=== PATIENT | female | born 1995 | race Caucasian/White ===

== ENCOUNTER 2017-10-27 17:08 | Emergency (ER) | payer OTHER, SELFPAY ==
[2017-10-27 17:25] VITALS: BP 118/79; PULSE 77; RESP 20; TEMP 36.8; O2SAT 99; BMI 30.9
--- NOTE | 2017-10-27 17:43 | HMH.EDUTC ---
[facility] [place] Disposition Clinical Impression: Conjunctivitis Qualifiers: Conjunctivitis type: unspecified Laterality: right Qualified Code(s): H10.9 - Unspecified conjunctivitis Disposition: Home, Self-Care Condition on Discharge: Good Instructions: DI for Conjunctivitis, Conjunctivitis Additional Instructions: Warm compresses may help to soothe eye irritation Wash eye with baby shampoo and warm rag to remove matting from eye lashes and lids If you began to have any trouble with vision go straight to Dr Barillas at [facility] Use drops as prescribed Follow up with family doctor Prescriptions: Gentamicin Sulfate [Garamycin 0.3% opth alex 5mL] 1 - 2 drops EYE-RIGHT Q4H #1 drops Referrals: David Diaz MD [Primary Care Provider] - Time of Disposition: 17:51 Medical Decision Making - Medical Records Medical records reviewed: Yes: I reviewed the patient's medical records. - Jordan Inquiry Pt receiving controlled substance: No Jordan was queried for this patient: No Vital Signs: 10/27/17 17:25 Temperature 98.2 F Temperature Source Temporal Artery Scan Pulse Rate [Right] 77 Respiratory Rate 20 Blood Pressure [Right Arm] 118/79 Blood Pressure Mean [Right Arm] 92 Blood Pressure Source [Right Arm] Automatic Cuff Blood Pressure Position [Right Arm] Sitting 02 Sat by Pulse Oximetry 99 Oxygen Delivery Method Room Air [facility] [place] HPI - General Stated complaint: Possible Arial Eye Time Seen by Provider: 10/27/17 17:35 Mode of Arrival: Ambulatory Source of Information: Patient Limitations: No Limitations Description of Symptoms (Recalled from Triage Doc. by RN): POSS PINK EYE 2 DAYS HEENT Symptoms (Recalled from RN notes): Yes Resp Symptoms (Recalled from RN notes): No Skin Symptoms (Recalled from RN notes): No MS Symptoms (Recalled from RN notes): No Functional Status (Recalled from RN notes): N - History of Present Illness Provider Complaint: Patient state that she has been having redness, itching, matting and drainage in her right eye for the last two days State that when she woke up eye was matted shut and she used a warm rag to get eye open State that she noticed today that her eye looked more red and someone told her they thought she had pink eye so she came in to get checked out - Related Data Home Medications Medication Instructions Recorded Confirmed albuterol sulfate HFA 90 2 puff INHALATION Q4-6H PRN 09/14/17 mcg/actuation aerosol inhaler Previous Rx's Medication Instructions Recorded Gentamicin Sulfate [Garamycin 0.3% 1 - 2 drops EYE-RIGHT Q4H #1 drops 10/27/17 opth alex 5mL] Allergies Allergy/AdvReac Type Severity Reaction Status Date / Time penicillin G [PENICILLIN G] Allergy Mild Verified 10/27/17 17:28 red dye [RED DYE] Allergy Unknown Verified 10/27/17 17:28 - Worker's Comp Is this a Worker's Comp case?: No [facility] History I have reviewed the patient's past medical history: Yes Medical History: Reports:: Asthma Laterality Cases: Bilateral: Tonsillectomy Other Surgeries: Yes: Amputation: No Fractures: No Comment: GALLBLADDER - Social History Smoking Status: Never smoker Alcohol Intake: never Substance Use Type: denies use - Psychiatric History Expresses thoughts of harming self/others: None Suicide Plan Description: No Plan Family Hx:: Hypertension, Diabetes, Cancer, Hyperlipidemia, Asthma, Stroke, Kidney Disease, Thyroid Disorder, Heart Attack ROS Obtained: Yes All systems reviewed & no additional complaints - Eyes Eyes: Denies blurry vision, Reports eye discharge, Reports irritation, Reports other (Redness and matting of eyes) Physical Exam - General General appearance: alert, in no apparent distress - Expanded Eye Exam Comment: Right eye conjunctiva red like that seen with pink eye drainage noted, Denies vision difficulty - Respiratory Respiratory exam: Present: normal lung sounds bilaterally. Absent: respiratory distress
[2017-10-27 17:45] VITALS: BP 118/79; PULSE 77; RESP 20; TEMP 36.8
--- NOTE | 2017-10-27 17:46 | ED_ITS ---
[facility] [place] Disposition Clinical Impression: Conjunctivitis Qualifiers: Conjunctivitis type: unspecified Laterality: right Qualified Code(s): H10.9 - Unspecified conjunctivitis Disposition: Home, Self-Care Condition on Discharge: Good Instructions: DI for Conjunctivitis, Conjunctivitis Additional Instructions: Warm compresses may help to soothe eye irritation Wash eye with baby shampoo and warm rag to remove matting from eye lashes and lids If you began to have any trouble with vision go straight to Dr Barillas at [facility] Use drops as prescribed Follow up with family doctor Prescriptions: Gentamicin Sulfate [Garamycin 0.3% opth alex 5mL] 1 - 2 drops EYE-RIGHT Q4H #1 drops Referrals: David Diaz MD [Primary Care Provider] - Time of Disposition: 17:51 Medical Decision Making - Medical Records Medical records reviewed: Yes: I reviewed the patient's medical records. - Joradn Inquiry Pt receiving controlled substance: No Jordan was queried for this patient: No Vital Signs: 10/27/17 17:25 Temperature 98.2 F Temperature Source Temporal Artery Scan Pulse Rate [Right] 77 Respiratory Rate 20 Blood Pressure [Right Arm] 118/79 Blood Pressure Mean [Right Arm] 92 Blood Pressure Source [Right Arm] Automatic Cuff Blood Pressure Position [Right Arm] Sitting 02 Sat by Pulse Oximetry 99 Oxygen Delivery Method Room Air [facility] [place] HPI - General Stated complaint: Possible [place] Eye Time Seen by Provider: 10/27/17 17:35 Mode of Arrival: Ambulatory Source of Information: Patient Limitations: No Limitations Description of Symptoms (Recalled from Triage Doc. by RN): POSS PINK EYE 2 DAYS HEENT Symptoms (Recalled from RN notes): Yes Resp Symptoms (Recalled from RN notes): No Skin Symptoms (Recalled from RN notes): No MS Symptoms (Recalled from RN notes): No Functional Status (Recalled from RN notes): N - History of Present Illness Provider Complaint: Patient state that she has been having redness, itching, matting and drainage in her right eye for the last two days State that when she woke up eye was matted shut and she used a warm rag to get eye open State that she noticed today that her eye looked more red and someone told her they thought she had pink eye so she came in to get checked out - Related Data Home Medications Medication Instructions Recorded Confirmed albuterol sulfate HFA 90 2 puff INHALATION Q4-6H PRN 09/14/17 mcg/actuation aerosol inhaler Previous Rx's Medication Instructions Recorded Gentamicin Sulfate [Garamycin 0.3% 1 - 2 drops EYE-RIGHT Q4H #1 drops 10/27/17 opth alex 5mL] Allergies Allergy/AdvReac Type Severity Reaction Status Date / Time penicillin G [PENICILLIN G] Allergy Mild Verified 10/27/17 17:28 red dye [RED DYE] Allergy Unknown Verified 10/27/17 17:28 - Worker's Comp Is this a Worker's Comp case?: No [facility] History I have reviewed the patient's past medical history: Yes Medical History: Reports:: Asthma Laterality Cases: Bilateral: Tonsillectomy Other Surgeries: Yes: Amputation: No Fractures: No Comment: GALLBLADDER - Social History Smoking Status: Never smoker Alcohol Intake: never Substance Use Type: denies use - Psychiatric History Expresses thoughts of harming self/others: None Suicide Plan Description
== END 2017-10-27 18:02 | disposition home or self-care (01) ==
PROVIDERS: Emergency Provider Nurse Practitioner; Family Provider Family Medicine; PCP Family Medicine
DX: H10.31 Unspecified acute conjunctivitis, right eye (principal); J45.909 Unspecified asthma, uncomplicated; Z88.0 Allergy status to penicillin
CPT/HCPCS: 99201

== ENCOUNTER → 2018-01-13 15:11 | Outpatient (CLI) | payer OTHER, SELFPAY ==
[2018-01-13 17:42] LABS: HCG Qualitative, Serum Positive (Negative)
== END ==
PROVIDERS: Visit Provider Obstetrics & Gynecology
DX: Z32.00 Encounter for pregnancy test, result unknown (principal)
CPT/HCPCS: 36415; 84703

== ENCOUNTER → 2018-03-01 13:19 | Outpatient (CLI) | payer OTHER, SELFPAY ==
--- NOTE | 2018-03-01 13:21 | US_ITS ---
US OB <= 14 weeks fetus HISTORY: ITS.REASON: US OB-Dates COMPARISON: Previous OB ultrasound study 06/18/2016 FINDINGS: There is a single fetus noted in breech presentation. The heart rate is 165 bpm. The placenta is posterior. The crown-rump length was measured at 9.64 cm equaling 15 weeks and 4 days. There is a three-vessel cord noted.] Reveal the BPD to be 3.34 cm equaling 16 weeks and 3 days, occipital frontal diameter measures 3.97 cm equaling 15 weeks and 4 days. The head circumference is 1.53 cm equaling 15 weeks and 5 days. There is a normal amount of amniotic fluid. No gross abnormalities identified. IMPRESSION: Live intrauterine gestation at 16 weeks and 0 days, suggest a follow-up study in 4-5 weeks for better anatomical evaluation.
== END ==
PROVIDERS: Family Provider Family Medicine; PCP Family Medicine; Visit Provider Nurse Practitioner Obstetrics & Gynecology
DX: O26.841 Uterine size-date discrepancy, first trimester (principal)
CPT/HCPCS: 76801; 76817

== ENCOUNTER → 2018-03-22 14:41 | Outpatient (CLI) | payer OTHER, SELFPAY ==
[2018-03-22 15:03] LABS: Basophils % 0.3 % (0.1-2.0); Eosinophils # 0.2 K/mm3 (0.0-0.4); Eosinophils % 2.8 % (0.1-12.0); Hematocrit 34.9 % (37.0-47.0); Hemoglobin 12.1 g/dL (12.2-16.2); Lymphocytes # 1.3 K/mm3 (0.7-4.5); Lymphocytes % 20.3 K/mm3 (10-50); Mean Corpuscular HGB Conc 34.8 g/dL (31.8-35.4); Mean Corpuscular Hemoglobin 30.1 pg (27.0-31.2); Mean Corpuscular Volume 86.7 fl (81-99); Mean Platelet Volume 7.6 fl (7.4-10.4); Monocytes # 0.2 K/mm3 (0.1-1.0); Monocytes % 2.9 % (1.7-9.3); Neutrophils # 4.8 K/mm3 (1.8-7.8); Neutrophils % 73.6 % (37.0-80.0); Platelet Count 176 K/mm3 (142-424); Red Blood Count 4.03 M/mm3 (4.20-5.40); Red Cell Distribution Width 13.6 % (11.5-17.5); White Blood Count 6.5 K/mm3 (4.8-10.8)
[2018-03-25 15:19] LABS: HIV Screen 4th Generation wRfx Non Reactive (Non Reactive); Hepatitis B Surface Antigen Negative (Negative); Hepatitis C Antibody <0.1 s/co ratio (0.0-0.9); Rapid Plasma Reagin Ab Titer Non Reactive (NonRea<1:1); Rubella Antibodies, IgG <0.90 index (Immune >0.99)
== END ==
PROVIDERS: Family Provider Family Medicine; PCP Family Medicine; Visit Provider Nurse Practitioner Obstetrics & Gynecology
DX: Z34.90 Encounter for supervision of normal pregnancy, unspecified, unspecified trimester (principal)
CPT/HCPCS: 36415; 85025; 86592; 86703; 86762; 86850; 87340; 87380; G0432

== ENCOUNTER → 2018-03-30 13:31 | Outpatient (CLI) | payer OTHER, SELFPAY ==
--- NOTE | 2018-03-30 13:32 | US_ITS ---
US OB /maternal detail: INDICATION: ITS.REASON: US OB Complete ORDERING PHYSICIAN: Henry Choudhary MD PATIENT AGE: 22 years TECHNIQUE: ultrasound transabdominal scanning. COMPARISON: No previous relevant studies. FINDINGS: Single viable intrauterine gestation. Breech position. Placenta: Posterior placenta grade 1. There is average amount fluid. The cervix appears satisfactory. Closed and measuring 4 cm in length. Complete survey performed and was unremarkable on the submitted images as in PACS. No discrete anomalies identified on survey imaging by technologist. Active fetus. Three-vessel cord with satisfactory umbilical cord insertion. 4- chamber heart noted. Survey of brain & ventricles unremarkable. Face and neck survey unremarkable. Diaphragm and chest views unremarkable. Abdomen: Both kidneys noted and unremarkable. Stomach noted and satisfactory. Spine: Survey of the spine satisfactory with no anomalies identified nor imaged. Both arms and legs noted. Amniotic Fluid: Adequate. Maternal adnexa: No significant findings. Measurements: Average ultrasound age 20 weeks 3 days. Gestational Age 21 weeks 0 day. Estimated due date by ultrasound age 1208/14/2018. Estimated weight 368 grams. BPD = 20 weeks 1 day OFD = 20 weeks 6 days HC = 19 weeks 6 days AC = 21 weeks 0 days FL = 20 weeks 4 days Growth Percentile= 27 percentile Heart Rate = 165 bpm Cerebellum = 20 weeks 5 days Humerus = 21 weeks 0 days HC/AC is 1.08. CI is 76%. FL/BPD is 72%. FL/AC is 21%. IMPRESSION: There is a single live fetus in breech presentation. Average ultrasound age is 20 weeks 3 days. Fetus is active with no obvious anomalies. Posterior placenta. Please see above for detail
== END ==
PROVIDERS: Family Provider Family Medicine; PCP Family Medicine; Visit Provider Nurse Practitioner Obstetrics & Gynecology
DX: Z36.0 Encounter for antenatal screening for chromosomal anomalies (principal)
CPT/HCPCS: 76811

== ENCOUNTER → 2018-07-13 08:10 | Outpatient (CLI) | payer OTHER, SELFPAY ==
--- NOTE | 2018-07-13 08:13 | US_ITS ---
US OB biophysical profile, US OB follow up, US SD Ratio umbilcal artery: Indication: Large for gestational age ITS.REASON: US OB BPP Growth ORDERING PHYSICIAN: Henry Choudhary MD PATIENT AGE: 23 years FINDINGS: The following parameters are obtained: Average ultrasound age is 36w2d. Estimated due date by ultrasound is 08/08/2018. Estimated weight is 2940. This is 83 percentile BPD: 35w6d OFD: 35w6d HC: 35w3d AC: 37w0d FL: 36w3d heart rate: 142 bpm. HC/AC: 0.96 (0.93-1.11) Cephalic index: 80% (70-86%) FL/BPD: 80% (71-87%) FL/AC: 22% (20-24%) Amniotic fluid index: 19 cm Qualitative AFV: 2 breathing movements: 2 Gross body movements: 2 Tone: 2 Biophysical profile score: 8/8 Doppler evaluation of the umbilical artery: SD ratio: 2.9 Resistive index: 0.66 No obvious anomalies evident. Placenta: Post Cervix: Appears closed and measures 3 cm IMPRESSION: There is a single live fetus which is in cephalic presentation with an average ultrasound age of 36 weeks and 2 days. Estimated weight is 2940 g which is 83 percentile. Placenta is posterior and grade one. REGI upper normal at 19 cm. Biophysical profile 8 of 8 Unremarkable umbilical artery Doppler evaluation
== END ==
PROVIDERS: PCP Family Medicine; Visit Provider Nurse Practitioner Obstetrics & Gynecology
DX: O36.63X0 Maternal care for excessive fetal growth, third trimester, not applicable or unspecified (principal)
CPT/HCPCS: 76816; 76819; 76820

== ENCOUNTER → 2018-07-19 17:50 | Outpatient (CLI) | payer OTHER, SELFPAY | PROVIDERS: Visit Provider Nurse Practitioner Obstetrics & Gynecology | DX: Z34.90 Encounter for supervision of normal pregnancy, unspecified, unspecified trimester (principal) | CPT/HCPCS: 86403 ==

== ENCOUNTER 2018-08-17 05:08 | Inpatient (IN) ==
[2018-08-17 06:04] LABS: Basophils % 0.2 % (0.1-2.0); Eosinophils # 0.1 K/mm3 (0.0-0.4); Hematocrit 35.2 % (37.0-47.0); Hemoglobin 11.5 g/dL (12.2-16.2); Lymphocytes # 2.2 K/mm3 (0.7-4.5); Lymphocytes % 25.4 % (10-50); Mean Corpuscular HGB Conc 32.6 g/dL (31.8-35.4); Mean Corpuscular Hemoglobin 26.7 pg (27.0-31.2); Mean Corpuscular Volume 81.9 fl (81-99); Mean Platelet Volume 8.4 fl (7.4-10.4); Monocytes # 0.2 K/mm3 (0.1-1.0); Monocytes % 2.8 % (1.7-9.3); Neutrophils % 70.6 % (37.0-80.0); Platelet Count 204 K/mm3 (142-424); Red Blood Count 4.29 M/mm3 (4.20-5.40); Red Cell Distribution Width 13.8 % (11.5-17.5); White Blood Count 8.5 K/mm3 (4.8-10.8)
[2018-08-17 06:11] LABS: Anion Gap 17.6 mEq/L (5-15); Calcium 8.4 mg/dL (8.5-10.1); Potassium 3.6 mmoL/L (3.5-5.1)
[2018-08-17 06:28] LABS: Microscopic, Urine URINE MICROSCOPIC (MICROSCOPIC)
[2018-08-17 06:29] LABS: Appearance,Urine SL CLOUDY (Clear); Bilirubin,Urine Negative (Negative); Blood, Urine TRACE-I (Negative); Color,Urine YELLOW (Yellow); Glucose,Urine (UA) Negative (Negative); Ketones,Urine 2+ (Negative); Leukocyte Esterase,Urine 2+ (Negative); Protein,Urine Negative (Negative); Specific Gravity, Urine >= 1.030 (1.005-1.030); Urobilinogen,Urine 0.2 EU/dl (0.2)
[2018-08-17 07:19] LABS: Bacteria,Urine 2+ /lpf; Mucus,Urine 1+ /lpf; WBC,Urine 20-50 #/hpf (0-3)
--- NOTE | 2018-08-17 08:21 | Operative Note ---
Date of procedure: 08/17/18 Pre-op Diagnosis:: Term , previous section Post-op Diagnosis:: Term , previous section, polyhydramnios Procedure performed:: Repeat lower segment transverse section Surgeon:: Henry Choudhary MD Maintenance Supervisor Electrical(s):: Marilee Jordan OPAL MINER:: Sb Neely Anesthesia: spinal Estimated blood loss (mL): 600 Clinical Note:: She is a 23-year-old 201 who was 39 weeks gestational age. She has had a previous section and as a result of that was offered repeat lower segment transverse section at term. The risks and benefits of surgery were discussed with the patient prior to surgery. Operative findings:: She delivered a liveborn female child at 7:45 AM on the morning of August 17, 2018. The baby had Apgars of 9 at 1 minute and 9 at 5 minutes. There was copious polyhydramnios with at least 15 cc of fluid recovered the time of the delivery. Ovaries and tubes appeared normal. Operative note:: She was taken to the operating room where spinal anesthesia was found be adequate. She was prepped and draped in normal sterile fashion in the supine position with a leftward tilt. A Celis catheter was in the bladder. A Pfannenstiel skin incision was made with knife then carried through to the underlying layer of fascia with cautery. The fascia was opened in the midline with cautery and extended laterally using Bagley scissors. Clemente clamps were applied to the superior aspect of the fascial incision which was tented up and the underlying rectus muscles dissected off using cautery. The [place] clamps were then applied to the inferior aspect of the fascial incision which in a similar fashion was tented up and the underlying rectus muscles dissected off using cautery. The rectus muscles were then in the midline, the peritoneum identified, and entered sharply with Metzenbaum scissors. This incision was then extended superiorly and inferiorly with cautery. We had good visualization of the bladder inferiorly. The Jasbir device was then placed within the abdominal cavity. The bladder peritoneum was then opened in the midline and extended laterally using Metzenbaum scissors. A bladder flap was created digitally. Transverse incision was made through the uterine muscle to the amnion. This incision was then extended laterally using fingers traction. The amnion was entered sharply with knife. There was copious clear amniotic fluid. The 's head was then delivered atraumatically. A loose nuchal cord was then reduced. This was followed by the anterior shoulder and the rest of the infant's body atraumatically. The oropharynx and nasopharynx were bulb suct ioned. The infant was then handed off to Dr. Sidhu who assigned Apgars of 9 at 1 minute and 9 at 5 minutes. We then obtained cord blood as well as cord pH. The pH was 7.31. Using gentle traction on the cord and countertraction on the fundus I was able to easily deliver the placenta intact. It had a normal three-vessel cord. The uterus was then cleared of clots and debris . The uterine incision was then closed using running 0 Vicryl suture in a locked fashion. A second layer of the same suture was used to imbricate the first layer. There is a small amount of bleeding medial to the incision and [id number] sutures were used here to obtain excellent hemostasis. The bladder peritoneum was then closed using running 2-0 Vicryl suture in a locked fashion. The gutters and cul-de-sac were then cleared of clots and debris . Once again hemostasis was assured. I then placed a large piece of Surgicel along incision. The peritoneum was grasped with Tanna clamps and closed using running 2-0 Vicryl suture. The rectus muscles were then reapproximated using running 0 Vicryl suture. The fascia was closed using running #1 Vicryl suture. The subcutaneous tissues were then irrigated with warm water followed by closure Chaparrita's fascia using running 2-0 Monocryl suture. The skin was closed with vitor. I then cleaned the skin with Hibiclens. Sterile dressings were applied. She tolerated the procedure well and was taken to the recovery room in excellent condition. All sponges, instrument and needle counts were correct. Estimated blood loss was approximately 600 mL. Condition: stable Disposition: PACU Specimens:: Products of conception Complications:: None
--- NOTE | 2018-08-17 08:26 | History & Physical Report ---
OB - H&P: HPI Antepartum - History of Present Illness Chief complaint: Term , previous section History of present illness: She is a 23-year-old 2 para 1 who is 39+ weeks gestation. She has had a section and as a result that would repeat lower segment transverse section at term. - History of Present Criteria for establishing EDC:: LMP confirmed by 1st trimester US care: good care Ultrasounds: normal 1st trimester US, normal mid trimester US Obstetrical complications: none Medical complications: none [facility] History I have reviewed the patient's past medical history: Yes Medical History: Reports:: Asthma Laterality Cases: Bilateral: Tonsillectomy Other Surgeries: Yes: Amputation: No Fractures: No - *Social History Smoking Status: Never smoker Alcohol Intake: never Substance Use Type: denies use *Family Hx:: Hypertension, Diabetes, Cancer, Hyperlipidemia, Asthma, Stroke, Kidney Disease, Thyroid Disorder, Heart Attack Para: 1 Review of Systems - Review of Systems Review of systems:: pertinent systems reviewed and negative unless documented below Meds Home Medications Medication Instructions Recorded Confirmed Type albuterol sulfate HFA 90 2 puff INHALATION Q4-6H PRN #8.5 g 05/24/18 08/17/18 Rx mcg/actuation aerosol inhaler RX: Vit Calc,Iron,Folic 1 tab PO QHS 08/17/18 08/17/18 History [Kpn] Allergies Allergy/AdvReac Type Severity Reaction Status Date / Time penicillin G [PENICILLIN G] Allergy Mild Verified 08/11/18 11:21 red dye [RED DYE] Allergy Unknown Verified 08/11/18 11:21 OB - H&P: Exam - Physical Exam Vital signs: Temp Pulse Resp BP Pulse Ox 99.0 F 95 H 17 140/72 98 08/17/18 05:59 08/17/18 05:59 08/17/18 05:59 08/17/18 05:59 08/17/18 05:59 - Constitutional no acute distress - Routine HEENT Exam Head: Present: normocephalic Eye: Present: EOMI, PERRL ENT: Present: mucous membranes moist - Routine Neck Exam Present: supple, full ROM - Routine Respiratory Exam Absent: accessory muscle use (good air entry bilaterally), respiratory distress, wheezes, crackles - Routine Cardiovascular Exam Present: RRR. Absent: murmur - Routine Abdominal Exam Present: soft, normoactive bowel sounds. Absent: tenderness, distended, guarding - Routine Rectal Exam Patient deferred: visual exam, digital exam - Routine Exam Patient deferred: external exam, groin exam, perineal exam - Routine Extremities Exam Present: full ROM. Absent: cyanosis, edema - Routine Skin Exam Present: intact. Absent: cyanosis - Routine Neurological Exam Present: alert, oriented X3 - Routine Psychiatric Exam Present: normal affect OB - Results - Labs Labs: Short CBC 08/17/18 Range/Units 05:45 WBC 8.5 (4.8-10.8) K/mm3 Hgb 11.5 L (12.2-16.2) g/dL Hct 35.2 L (37.0-47.0) % Plt Count 204 (142-424) K/mm3 BMP 08/17/18 05:45 Sodium 138 Potassium 3.6 Chloride 104 Carbon Dioxide 20 L BUN 6 L Creatinine 0.59 Glucose 92 Calcium 8.4 L Urine 08/17/18 Range/Units 06:20 Urine Color Yellow (Yellow) Urine Appearance Sl cloudy (Clear) Urine pH 6.0 (5.0-8.5) Ur Specific [place] >= 1.030 (1.005-1.030) Urine Protein Negative (Negative) Urine Glucose (UA) Negative (Negative) OB - A/P Antepartum (1) Delivery of by section Current visit: Yes Status: Acute (2) Previous section Current visit: No Status: Acute - Additional Plan Planning to breastfeed?: Yes Plan: other Additional Information:: She is here for a repeat lower segment transverse section.
--- NOTE | 2018-08-17 08:27 | Progress Note ---
[facility] Anesthesia Checklist - Patient Identification Patient Identification: Arm Band - Structural Data Admitted From: Inpatient Planned Operative Procedure/s: repeat c/s Consent for Planned Operative Procedure(s) Verified: Yes Verified Documents: Surgical Consent, History and Physical - NPO Status Verified Time NPO: 00:00 - Additional verifications Anesthesia Reactions: No - Airway Assessment C-Spine Mobility Assessed: Yes (mp2) TMJ Mobility Assessed: Yes Dentition: Good Dentition - Neurological Assessment Level of Consciousness: Awake, Alert - Anesthesia Plan Anesthesia Risk discussed: Yes Anesthesia Plan: Verified ASA Class: II Anesthesia Type: Spinal [facility] History I have reviewed the patient's past medical history: Yes Medical History: Reports:: Asthma Laterality Cases: Bilateral: Tonsillectomy Other Surgeries: Yes: Amputation: No Fractures: No - *Social History Smoking Status: Never smoker Alcohol Intake: never Substance Use Type: denies use *Family Hx:: Hypertension, Diabetes, Cancer, Hyperlipidemia, Asthma, Stroke, Kidney Disease, Thyroid Disorder, Heart Attack Para: 1
--- NOTE | 2018-08-17 08:29 | Progress Note ---
[facility] Anesthesia Record Part I Intake, IV Amount: 2,000 Estimated blood loss (mL): 600 Urine output (mL): 300 Blood Pressure: 138/68 SaO2: 97 Pulse Rate: 98 Respiratory Rate: 16 Temperature: 97.1 F Patient is:: Awake, Stable Stable to PACU at:: 08:20
--- NOTE | 2018-08-17 08:29 | Progress Note ---
[facility] Anesthesia Record Part II Discharge Time: 08:50 Destination: Obstetric PACU nurse assessment reviewed?: Yes Patient Condition:: Good Anesthesia Complications:: None
--- NOTE | 2018-08-17 08:45 | Pharmacy Consult Notes ---
[facility] Pharmacy VTE Monitoring - Patient Demographics Admission date: 08/17/18 Report Date: 08/17/18 Time: 08:45 Allergies/Adverse Reactions: Patient Allergies penicillin G [PENICILLIN G] Allergy (Mild, Verified 08/11/18 11:21) red dye [RED DYE] Allergy (Unknown, Verified 08/11/18 11:21) Height: 1.63 m Weight: 99.79 kg Patient Problems: Current Active Problems Delivery of by section (Acute) - VTE Risk Labs: VTE Related Lab Results Hgb 11.5 g/dL (12.2-16.2) L 08/17/18 05:45 Hct 35.2 % (37.0-47.0) L 08/17/18 05:45 Plt Count 204 K/mm3 (142-424) 08/17/18 05:45 BUN 6 mg/dL (7-18) L 08/17/18 05:45 Creatinine 0.59 mg/dL (0.55-1.02) 08/17/18 05:45 Estimated Creat Clear 236 mL/min (50-200) 08/17/18 05:45 - Prophylaxis VTE Prophylaxis Ordered?: Yes Types of VTE Prophylaxis: IPCS Thigh High Location of Applied Device: Bilateral Lower Extremeties - VTE Diagnosis Confirmed Treatment or plan recommended: Continue Current Treatment
[2018-08-18 06:45] LABS: Basophils % 0.2 % (0.1-2.0); Eosinophils # 0.1 K/mm3 (0.0-0.4); Eosinophils % 0.7 % (0.1-12.0); Hematocrit 29.4 % (37.0-47.0); Hemoglobin 9.3 g/dL (12.2-16.2); Lymphocytes # 1.4 K/mm3 (0.7-4.5); Lymphocytes % 17.1 % (10-50); Mean Corpuscular HGB Conc 31.8 g/dL (31.8-35.4); Mean Corpuscular Hemoglobin 26.2 pg (27.0-31.2); Mean Corpuscular Volume 82.4 fl (81-99); Mean Platelet Volume 7.9 fl (7.4-10.4); Monocytes # 0.3 K/mm3 (0.1-1.0); Monocytes % 3.8 % (1.7-9.3); Neutrophils # 6.5 K/mm3 (1.8-7.8); Neutrophils % 78.2 % (37.0-80.0); Platelet Count 167 K/mm3 (142-424); Red Blood Count 3.56 M/mm3 (4.20-5.40); Red Cell Distribution Width 13.9 % (11.5-17.5); White Blood Count 8.3 K/mm3 (4.8-10.8)
--- NOTE | 2018-08-18 08:15 | Progress Note ---
Internal Medicine - PN: Subj *Date: 08/18/18 *Time: 08:13 Interval history: She continues to do well this morning. She is eating and drinking and ambulating. She is breast-feeding and bottlefeeding. Her pain is well controlled. Exam Vital signs and Labs for Last 24 Hours: Temp Pulse Resp BP Pulse Ox 97.6 F 86 24 137/69 98 08/17/18 09:25 08/17/18 09:25 08/17/18 09:25 08/17/18 09:25 08/17/18 09:25 Laboratory Results - last 24 hr 08/17/18 07:30: Urine Color Yellow, Urine Appearance Clear, Urine pH 6.5, Ur Specific [place] <= 1.005, Urine Protein Negative, Urine Glucose (UA) Negative, Urine Ketones 1+, Urine Blood Negative, Urine Nitrate Negative, Urine Bilirubin Negative, Urine Urobilinogen 0.2, Ur Leukocyte Esterase Negative, Urine WBC Occasional, Urine Bacteria Trace 08/18/18 06:18: WBC 8.3, RBC 3.56 L, Hgb 9.3 L, Hct 29.4 L, MCV 82.4, MCH 26.2 L , MCHC 31.8, RDW 13.9, Plt Count 167, MPV 7.9, Neut % (Auto) 78.2, Lymph % (Auto) 17.1, Cecil % (Auto) 3.8, Eos % (Auto) 0.7, Baso % (Auto) 0.2, Neut # (Auto) 6.5, Lymph # (Auto) 1.4, Cecil # (Auto) 0.3, Eos # (Auto) 0.1, Baso # (Auto) 0.0 I & O for Last 24 hours: Intake & Output 08/15/18 08/16/18 08/17/18 08/18/18 11:59 11:59 11:59 11:59 Intake Total 1999 / 1999 Output Total 300 / 300 Balance 1700 / 1700 Weight 220 lb Microbiology Reports for the Last 24 Hours: Microbiology 08/17/18 06:20 Urine,Clean Catch Urine Culture - Final Multiple organisms, suggests contamination. - Constitutional no acute distress Assessment and Plan (1) Delivery of by section Current visit: Yes Status: Acute Category: Medical Code(s): O82 - Encounter for delivery without indication (2) Previous section Current visit: No Status: Acute Category: Surgical Code(s): Z98.891 - History of uterine scar from previous surgery - Assessment and plan all Dx Assessment and Plan for all problems:: She is 1 day postoperative from a section. She is doing well. We will plan to send her home in 48 hours.
--- NOTE | 2018-08-19 08:15 | Progress Note ---
Internal Medicine - PN: Subj *Date: 08/19/18 *Time: 08:15 Interval history: She continues to do well this morning. She is eating and drinking and ambulating. She is breast and bottlefeeding. Her pain is well controlled. Exam Vital signs and Labs for Last 24 Hours: Temp Pulse Resp BP Pulse Ox 98.7 F 85 18 133/67 98 08/18/18 20:30 08/18/18 20:30 08/18/18 20:30 08/18/18 20:30 08/18/18 20:30 I & O for Last 24 hours: Intake & Output 08/16/18 08/17/18 08/18/18 08/19/18 11:59 11:59 11:59 11:59 Intake Total 1999 / 1999 Output Total 300 / 300 Balance 1700 / 1700 Weight 220 lb Microbiology Reports for the Last 24 Hours: Microbiology 08/17/18 06:20 Urine,Clean Catch Urine Culture - Final Multiple organisms, suggests contamination. - Constitutional no acute distress Assessment and Plan (1) Delivery of by section Current visit: Yes Status: Acute Category: Medical Code(s): O82 - Encounter for delivery without indication (2) Previous section Current visit: No Status: Acute Category: Surgical Code(s): Z98.891 - History of uterine scar from previous surgery - Assessment and plan all Dx Assessment and Plan for all problems:: She continues to do well this morning. We will plan to send her home tomorrow.
[2018-08-20 08:57] VITALS: BP 134/75
--- NOTE | 2018-08-20 10:17 | Discharge Summary ---
General - General Admission date:: 08/17/18 Discharge date: 08/20/18 HPI HPI: She is a 23-year-old good to me now para 2 who was 40 and 1 weeks system age. She has had a previous section and as a result of that was offered repeat lower segment transverse section at term. Hospital Course Hospital Course: On August 17, 2018 underwent a repeat lower segment transverse section and delivered a liveborn female child at 7:45 AM. The baby weighed 9 pounds 1 ounces and was 20 inches long. She had Apgars of 9 at 1 minute and 9 minutes. She has done well and has remained afebrile throughout her hospitalization. She is eating and drinking and ambulating. She is bottlefeeding. Her lochia is normal. She has a positive blood. She is rubella immune and group B streptococcus negative. She is discharged home to follow-up with me in approximately 2 weeks time. She will continue with her vitamins and iron. She is in a prescription for Percocet 5/325 number 20 tablets. Her condition and it is stable. Rhogam Administration: Not Indicated Objective Vital signs: Temp Pulse Resp BP Pulse Ox 98.0 F 76 18 134/75 98 08/20/18 08:00 08/20/18 08:00 08/20/18 08:00 08/20/18 08:00 08/20/18 08:00 no acute distress DS: Diagnosis - Discharge Diagnosis (1) Delivery of by section Status: Acute (2) Previous section Status: Acute Discharge Plan - Patient Discharge Instructions ACTIVITY: No heavy lifting DIET: continue same diet Additional Instructions: No heavy lifting, no strenuous activity, and no driving while taking pain medications. Nothing in the vaginal for 6 weeks. Patient Instructions: How to Care for a Surgical Wound, Depression, Hemorrhage, DI for , DI for Postoperative Pain, [facility] Post Discharge Instructions - Follow up Plan Follow up with: Henry Choudhary MD [Staff Physician] - 08/31/18 10:45 am Disposition: Home, Self-Group Home Medications: Home Medications Medication Instructions Recorded Confirmed Type albuterol sulfate HFA 90 2 puff INHALATION Q4-6H PRN #8.5 g 05/24/18 08/17/18 Rx mcg/actuation aerosol inhaler Vit Calc,Iron,Folic [Kpn] 1 tab PO HS 08/17/18 08/17/18 History Oxycodone HCl [OxyIR 5mg tablet] 5 mg PO Q4HP PRN #20 tab 08/20/18 Rx Prescriptions/Medication Reconciliation: New Oxycodone HCl [OxyIR 5mg tablet] 5 mg PO Q4HP PRN #20 tab PRN Reason: Moderate Pain Continue albuterol sulfate HFA 90 mcg/actuation aerosol inhaler 2 puff INHALATION Q4- 6H PRN #8.5 g PRN Reason: shortness of breath Vit Calc,Iron,Folic [Kpn] 1 tab PO HS
== END 2018-08-20 11:40 | disposition home or self-care (01) | DRG 788 ==
LOC: OB 05:08
PROVIDERS: ADMIT Obstetrics & Gynecology; ATTEND Nurse Practitioner Obstetrics & Gynecology
CPT/HCPCS: 36415; 59025; 80048; 81001; 82800; 85025; 86850; 87086; 90707; J1956; J2405; S0077

== ENCOUNTER → 2019-09-15 09:02 | Outpatient (CLI) | payer OTHER, SELFPAY ==
--- NOTE | 2019-09-15 09:06 | FL_ITS ---
PROCEDURE: FL BARIUM SWALLOW CLINICAL INDICATION: DYSPHAGIA COMPARISON: No exams were available for comparison TECHNIQUE: In the upright position the patient was observed to swallow barium in both the AP and lateral view. The cervical esophagus was examined under fluoroscopy with images obtained. The patient was then placed prone in the right anterior oblique position and was observed to swallow barium with Valsalva technique . FLUOROSCOPY TIME: 1 minutes and 4 seconds FINDINGS: There was no evidence of aspiration. There was normal peristalsis. No filling defects or mucosal abnormalities. No masses or strictures. No evidence of hiatal hernia or reflux IMPRESSION: Negative barium swallow. Dictated by: Ez Torres MD 09/15/2019 11:15 Electronically signed by Ez Torres MD in [place] 09/15/2019 11:15
--- NOTE | 2019-09-15 09:06 | US_ITS ---
PROCEDURE: US THYROID CLINICAL INDICATION: DYSPHAGIA Dysphagia COMPARISON: THY US THYROID from 03/06/2016 FINDINGS: Right lobe: 4.2 x 1.4 x 1.7 cm. Homogeneous echogenicity without evidence of nodule. Left lobe: 2.7 x 0.9 x 1.1 cm. No nodules apparent Isthmus: Unremarkable Additional findings: IMPRESSION: Mildly enlarged right lobe of the thyroid gland otherwise negative. No nodules are evident Dictated by: Ez Torres MD 09/15/2019 12:23 Electronically signed by Ez Torres MD in [place] 09/15/2019 12:23
[2019-09-15 09:53] LABS: Urine Pregnancy, HCG Qual. Negative (Negative)
== END ==
PROVIDERS: PCP Family Medicine; Visit Provider Otolaryngology
DX: R13.10 Dysphagia, unspecified (principal); K22.5 Diverticulum of esophagus, acquired
CPT/HCPCS: 74220; 76536; 81025

== ENCOUNTER → 2021-11-26 16:02 | Outpatient (CLI) | payer OTHER, SELFPAY ==
[2021-11-26 16:28] LABS: Basophils % 0.4 % (0.1-2.0); Eosinophils % 0.3 % (0.1-12.0); Hemoglobin 13.2 g/dL (12.2-16.2); Mean Corpuscular HGB Conc 33.8 g/dL (31.8-35.4); Mean Corpuscular Hemoglobin 29.7 pg (27.0-31.2); Mean Platelet Volume 7.5 fl (7.4-10.4); Monocytes # 0.2 K/mm3 (0.1-1.0); Monocytes % 3.7 % (1.7-9.3); Neutrophils # 4.6 K/mm3 (1.8-7.8); Neutrophils % 78.5 % (37.0-80.0); Platelet Count 264 K/mm3 (142-424); Red Blood Count 4.44 M/mm3 (4.20-5.40); Red Cell Distribution Width 13.5 % (11.5-17.5); White Blood Count 5.8 K/mm3 (4.8-10.8)
[2021-11-28 08:33] LABS: HSV 2 IgG, Type Spec <0.91 index (0.00-0.90); Hepatitis B Surface Antigen Negative (Negative); Hepatitis C Antibody 0.2 s/co ratio (0.0-0.9); Rubella Antibodies, IgG 1.55 index (Immune >0.99)
[2021-11-28 09:18] LABS: HIV Screen 4th Generation wRfx Non Reactive (Non Reactive)
[2021-11-28 12:29] LABS: Rapid Plasma Reagin Ab Titer Non Reactive (NonRea<1:1)
== END ==
PROVIDERS: Visit Provider Nurse Practitioner Obstetrics & Gynecology
DX: Z34.90 Encounter for supervision of normal pregnancy, unspecified, unspecified trimester (principal); N92.6 Irregular menstruation, unspecified
CPT/HCPCS: 36415; 84702; 85025; 86592; 86695; 86703; 86762; 86790; 86850; 87340; 87380; G0432

== ENCOUNTER → 2021-12-01 13:55 | Outpatient (CLI) | payer OTHER, SELFPAY ==
--- NOTE | 2021-12-01 13:55 | US_ITS ---
FINAL REPORT CLINICAL HISTORY: for dates-- ealry ob FINDINGS: Sonographic images of the pelvis were obtained. A single, living intrauterine is noted. A yolk sac is present and measures 0.6 cm. [place] to rump length measures 1.56 cm which corresponds to 8 weeks 0 days gestation. Heartbeat is identified and measures 157 beats per minute. The right ovary is within normal limits. The left ovary is within normal limits. IMPRESSION: Single, living, intrauterine gestation with 9 weeks 0 days gestational age. Reviewed, Interpreted and Dictated by Varun Penaloza III, MD Transcribed by Latrice Castillo Authenticated by Varun Penaloza III, MD on 12/01/2021 03:18:17 PM [facility]
== END ==
PROVIDERS: PCP Family Medicine; Visit Provider Nurse Practitioner Obstetrics & Gynecology
DX: Z34.90 Encounter for supervision of normal pregnancy, unspecified, unspecified trimester (principal)
CPT/HCPCS: 76801

== ENCOUNTER → 2021-12-24 16:01 | Outpatient (CLI) | payer OTHER, SELFPAY | PROVIDERS: Visit Provider Nurse Practitioner Obstetrics & Gynecology | DX: Z31.430 Encounter of female for testing for genetic disease carrier status for procreative management (principal); Z36.0 Encounter for antenatal screening for chromosomal anomalies; O28.3 Abnormal ultrasonic finding on antenatal screening of mother | CPT/HCPCS: 36415 ==

== ENCOUNTER 2022-01-28 15:30 | Emergency (ER) | payer OTHER, SELFPAY ==
[2022-01-28 16:40] VITALS: BP 130/82; PULSE 113; RESP 22; TEMP 36.8; O2SAT 98; BMI 28.9
--- NOTE | 2022-01-28 17:07 | HMH.EDUTC ---
[facility] [place] Clinical Impression: Exposure to COVID-19 virus Disposition: Home, Self-Care Condition on Discharge: Good Instructions: DI for COVID-19 (Suspected or Confirmed ), Preventing the Spread of Coronavirus Discharge Instructions Additional Instructions: *Monitor Temp, Over the counter Motrin or Tylenol as directed/as needed Tylenol every 4 hours and Motrin every 6 hours (as long as your family doctor has told you that you can take it) for fever or pain. and straight to ER if unable to lower temp less than 101.0 after medication given Follow up IMMEDIATELY for new or worsening symptoms or no Noticeable improvement over the next 48-72 hours. 911 for difficulty breathing or swallowing You were tested for today for COVID19 your test result should be back in the next 24-48 hours, you may check your results on the [facility] My Health Portal Make sure to take your Vitamins Vit. C Vit D and Zinc if you can take them Referrals: David Diaz MD [Primary Care Provider] - Time of Disposition: 17:08 Medical Decision Making - Jordan Inquiry Pt receiving controlled substance: No Jordan was queried for this patient: No Vital Signs: 01/28/22 16:40 Temperature 98.2 F Temperature Source Oral Pulse Rate [Right Brachial] 113 H Respiratory Rate 22 Blood Pressure [Right Arm] 130/82 Blood Pressure Mean [Right Arm] 98 Blood Pressure Source [Right Arm] Automatic Cuff Blood Pressure Position [Right Arm] Sitting 02 Sat by Pulse Oximetry 98 Oxygen Delivery Method Room Air Orders (Tests/Meds): ORDERS Category Date Time Status Covid-19 Nasal PCR ([facility]) Routine Lab 01/28/22 16:36 [place] [facility] [place] - General Stated complaint: covid test Time Seen by Provider: 01/28/22 17:07 Mode of Arrival: Ambulatory Source of Information: Patient Limitations: No Limitations Description of Symptoms (Recalled from Triage Doc. by RN): COVID TEST D/T EXPOSURE, DENIES SYMPTOMS HEENT Symptoms (Recalled from RN notes): No Resp Symptoms (Recalled from RN notes): No Skin Symptoms (Recalled from RN notes): No MS Symptoms (Recalled from RN notes): No Functional Status (Recalled from RN notes): WNL - History of Present Illness Provider Complaint: Patient states that she was around mother and sister that tested positive for COVID States that she is not having any symptoms but wanted to get tested - Related Data Home Medications Medication Instructions Recorded Confirmed omeprazole 40 mg capsule,delayed 40 mg PO DAILY 09/10/21 12/24/21 release Previous Rx's Medication Instructions Recorded vitamins no.119-iron 1 tab PO DAILY #30 tab 09/11/21 fumarate 29 mg-folic acid 1 mg tablet prenat.vits,odilon,dmg-buyt-ikril 1 tab PO DAILY #30 tab 11/26/21 promethazine 12.5 mg tablet 12.5 mg PO Q4-6H PRN #30 tab 11/26/21 terconazole 0.4 % vaginal cream 5 g VG HS 7 Days #45 g 12/31/21 Allergies Allergy/AdvReac Type Severity Reaction Status Date / Time penicillin G [PENICILLIN G] Allergy Mild Verified 12/24/21 15:07 red dye [RED DYE] Allergy Unknown Verified 12/24/21 15:07 - Worker's Comp Is this a Worker's Comp case?: No [facility] History - Hepatitis A Screen Attestation statement:: This patient has been screened for Hepatitis A risk factors. I have reviewed the patient's past medical history: Yes Medical History: Reports:: Asthma Denies:: Anxiety, Depression, Diabetes Mellitus Type 1, Hyperlipidemia, Hypertension, Migraine, MRSA, Seizures Other Medical History: Denies: Anemia Comment: ACID REFLUX Laterality Cases: Bilateral: Tonsillectomy Other Surgeries: Yes: Amputation: No Fractures: No Comment: GALLBLADDER - Social History Smoking Status: Never smoker Alcohol Intake: never Substance Use Type: denies use Occupational Status: unemployed Housing: house Household Members: spouse - Psychiatric History Pschychiatric History:: Denies:: Anxiety, Depression Family Hx:: Hyper
[2022-01-28 17:09] VITALS: BP 130/82; PULSE 113; RESP 22; TEMP 36.8; O2SAT 98
== END 2022-01-28 17:22 | disposition home or self-care (01) ==
PROVIDERS: Emergency Provider Nurse Practitioner; PCP Family Medicine
DX: U07.1 COVID-19 (principal); J45.909 Unspecified asthma, uncomplicated
CPT/HCPCS: 99212; C9803; G0463; U0003; U0005

== ENCOUNTER 2022-02-03 16:07 | Emergency (ER) | payer OTHER, SELFPAY ==
[2022-02-03 16:30] VITALS: BP 121/76; PULSE 101; RESP 22; TEMP 37; O2SAT 98
[2022-02-03 17:04] VITALS: BP 121/76; PULSE 101; RESP 22; TEMP 37; O2SAT 98
--- NOTE | 2022-02-03 17:19 | HMH.EDUTC ---
[facility] [place]ression: Encounter for laboratory testing for COVID-19 virus Disposition: Home, Self-Care Condition on Discharge: Good Instructions: DI for COVID-19 (Suspected or Confirmed ), Preventing the Spread of Coronavirus Discharge Instructions Additional Instructions: *Monitor Temp, Over the counter Motrin or Tylenol as directed/as needed Tylenol every 4 hours and Motrin every 6 hours (as long as your family doctor has told you that you can take it) for fever or pain. and straight to ER if unable to lower temp less than 101.0 after medication given Follow up IMMEDIATELY for new or worsening symptoms or no Noticeable improvement over the next 48-72 hours. 911 for difficulty breathing or swallowing You were tested for today for COVID19 your test result should be back in the next 24-48 hours, you may check your results on the [facility] My Health Portal Make sure to take your Vitamins Vit. C Vit D and Zinc if you can take them Referrals: David Diaz MD [Primary Care Provider] - As needed Time of Disposition: 17:21 Medical Decision Making - Jordan Inquiry Pt receiving controlled substance: No Jordan was queried for this patient: No Vital Signs: 02/03/22 16:30 02/03/22 17:04 Temperature 98.6 F 98.6 F Temperature Source Oral Pulse Rate 101 H Pulse Rate [Right Brachial] 101 H Respiratory Rate 22 22 Blood Pressure 121/76 Blood Pressure [Right Arm] 121/76 Blood Pressure Mean [Right Arm] 91 Blood Pressure Source [Right Arm] Automatic Cuff Blood Pressure Position [Right Arm] Sitting 02 Sat by Pulse Oximetry 98 Oxygen Delivery Method Room Air Orders (Tests/Meds): ORDERS Category Date Time Status Covid-19 Nasal PCR ([facility]) Routine Lab 02/03/22 16:[address] [facility] [place] - General Stated complaint: covid test Time Seen by Provider: 02/03/22 17:19 Mode of Arrival: Ambulatory Source of Information: Patient Limitations: No Limitations Description of Symptoms (Recalled from Triage Doc. by RN): COVID TEST HEENT Symptoms (Recalled from RN notes): No Resp Symptoms (Recalled from RN notes): No Skin Symptoms (Recalled from RN notes): No MS Symptoms (Recalled from RN notes): No Functional Status (Recalled from RN notes): WNL - History of Present Illness Provider Complaint: Patient states that she was positive for COVID last week and she wanted to get tested again to see if she was still showing positive Denies any symptoms - Related Data Home Medications Medication Instructions Recorded Confirmed omeprazole 40 mg capsule,delayed 40 mg PO DAILY 09/10/21 12/24/21 release Previous Rx's Medication Instructions Recorded vitamins no.119-iron 1 tab PO DAILY #30 tab 09/11/21 fumarate 29 mg-folic acid 1 mg tablet prenat.vits,odilon,fsd-tewb-aorzq 1 tab PO DAILY #30 tab 11/26/21 promethazine 12.5 mg tablet 12.5 mg PO Q4-6H PRN #30 tab 11/26/21 terconazole 0.4 % vaginal cream 5 g VG HS 7 Days #45 g 12/31/21 Allergies Allergy/AdvReac Type Severity Reaction Status Date / Time penicillin G [PENICILLIN G] Allergy Mild Verified 12/24/21 15:07 red dye [RED DYE] Allergy Unknown Verified 12/24/21 15:07 - Worker's Comp Is this a Worker's Comp case?: No [facility] History - Hepatitis A Screen Attestation statement:: This patient has been screened for Hepatitis A risk factors. I have reviewed the patient's past medical history: Yes Medical History: Reports:: Asthma Denies:: Anxiety, Depression, Diabetes Mellitus Type 1, Hyperlipidemia, Hypertension, Migraine, MRSA, Seizures Other Medical History: Denies: Anemia Comment: ACID REFLUX Laterality Cases: Bilateral: Tonsillectomy Other Surgeries: Yes: Amputation: No Fractures: No Comment: GALLBLADDER - Social History Smoking Status: Never smoker Alcohol Intake: never Substance Use Type: denies use Occupational Status: unemployed Housing: house Household Members: spouse - Psychiatric His
== END 2022-02-03 17:20 | disposition home or self-care (01) ==
PROVIDERS: Emergency Provider Nurse Practitioner; PCP Family Medicine
DX: U07.1 COVID-19 (principal); Z72.0 Tobacco use; J45.909 Unspecified asthma, uncomplicated
CPT/HCPCS: 99212; C9803; G0463; U0003; U0005

== ENCOUNTER → 2022-03-04 12:54 | Outpatient (CLI) | payer OTHER, SELFPAY ==
--- NOTE | 2022-03-04 12:59 | US_ITS ---
FINAL REPORT CLINICAL HISTORY: OB complete FINDINGS: There is a single live intrauterine gestation. Presentation is cephalic. The cervix is closed and measures 3.2 cm. Placenta is anterior, high, grade 1. movement is noted. Heart rate is measured at 161 beats per minute. Three-vessel cord with satisfactory umbilical cord insertion. Four-chamber heart is noted. brain and ventricles are unremarkable. Chest and diaphragm are unremarkable. ABDOMEN: Both kidneys are unremarkable. Stomach is unremarkable. SPINE: No anomalies identified. Both arms and legs noted. AMNIOTIC FLUID: Appropriate amount. MEASUREMENTS: ULTRASOUND AGE: 21 weeks 0 days. GESTATION AGE: 21 weeks 2 days. ESTIMATED WEIGHT: 396 g GROWTH PERCENTILE: 32% BPD: 5 cm corresponding with 21 weeks 1 days. OFD: 6.3 cm corresponding with 21 weeks 0 days. HC: 17.8 cm corresponding with 20 weeks 2 days. AC: 16.1 cm corresponding with 21 weeks 2 days. FL: 3.5 cm corresponding with 21 weeks 1 days. CEREBELLUM: 2.1 cm corresponding with 21 weeks 2 days. HUMERUS: 3.3 cm corresponding with 21 weeks 1 days. HC/AC: 1.10 CI: 79% FL/BPD: 70% FL/AC: 22% IMPRESSION: Single living IUP with an ultrasound age of 21 weeks 0 days. Reviewed, Interpreted and Dictated by Varun Penaloza III, MD Transcribed by Latrice Castillo Authenticated and [facility]
== END ==
PROVIDERS: PCP Family Medicine; Visit Provider Nurse Practitioner Obstetrics & Gynecology
DX: Z34.90 Encounter for supervision of normal pregnancy, unspecified, unspecified trimester (principal)
CPT/HCPCS: 76811

== ENCOUNTER → 2022-04-27 11:05 | Outpatient (CLI) | payer OTHER, SELFPAY ==
[2022-04-27 11:47] LABS: Glucose,Fasting 83 mg/dl (74-100)
[2022-04-27 13:36] LABS: Glucose 1 Hour 107 mg/dL (74-100)
== END ==
PROVIDERS: PCP Family Medicine; Visit Provider Nurse Practitioner Obstetrics & Gynecology
DX: Z34.90 Encounter for supervision of normal pregnancy, unspecified, unspecified trimester (principal)
CPT/HCPCS: 36415; 82951

== ENCOUNTER 2022-06-04 19:40 | Outpatient (CLI) | payer OTHER, SELFPAY ==
[2022-06-04 19:56] VITALS: BMI 31.9
[2022-06-04 20:25] LABS: Microscopic, Urine URINE MICROSCOPIC (MICROSCOPIC)
[2022-06-04 20:29] LABS: Appearance,Urine CLEAR (Clear); Bilirubin,Urine Negative (Negative); Blood, Urine Negative (Negative); Color,Urine YELLOW (Yellow); Glucose,Urine (UA) Negative (Negative); Ketones,Urine Negative (Negative); Leukocyte Esterase,Urine Negative (Negative); Nitrate,Urine Negative (Negative); Protein,Urine Negative (Negative); Specific Gravity, Urine <= 1.005 (1.005-1.030); Urobilinogen,Urine 0.2 EU/dl (0.2)
[2022-06-04 20:41] LABS: Amphetamine/Metha Screen,Urine Negative ng/ml (<1000)
[2022-06-04 20:42] LABS: Barbiturates Screen,Urine Negative ng/ml (<200); Benzodiazepines Screen,Urine Negative ng/ml (<200)
[2022-06-04 20:43] LABS: Cannabinoid Screen,Urine Negative ng/ml (<50); Methadone Screen,Urine Negative ng/ml (<300)
[2022-06-04 20:44] LABS: Cocaine Screen,Urine Negative ng/ml (<300)
[2022-06-04 20:45] LABS: Opiate Screen,Urine Negative ng/ml (<300); Phencyclidine Screen,Urine Negative ng/ml (<25)
[2022-06-04 20:56] VITALS: BP 136/76; PULSE 91; RESP 18; TEMP 37; O2SAT 97; BMI 31.9
[2022-06-04 21:09] LABS: Fetal Fibronectin (Rapid) Negative (Negative)
[2022-06-04 21:13] LABS: WBC,Urine Occasional #/hpf (0-3)
[2022-06-04 21:14] LABS: Squamous Epithelial Cell,Urine Occasional #/hpf (0-5)
== END 2022-06-04 21:20 | disposition home or self-care (01) ==
LOC: OBOUT 19:44 → OB 19:44
PROVIDERS: PCP Family Medicine; Visit Provider Obstetrics & Gynecology
DX: O26.893 Other specified pregnancy related conditions, third trimester (principal); Z3A.35 35 weeks gestation of pregnancy; R10.30 Lower abdominal pain, unspecified
CPT/HCPCS: 59025; 80305; 81001; 82731; G0463

== ENCOUNTER 2022-06-12 13:00 | Emergency (ER) | payer OTHER, SELFPAY ==
[2022-06-12 14:26] VITALS: BP 121/76; PULSE 89; RESP 18; TEMP 36.8; O2SAT 100; BMI 34.7
--- NOTE | 2022-06-12 14:29 | EXP.UTC ---
Discharge Plan Disposition Patient Disposition: Home, Self-Care Condition: Good Prescriptions Prescriptions: New azithromycin 200 mg/5 mL suspension for reconstitution See Rx Instructions .ROUTE .COMPLEX Qty: 37.5 0RF Rx Instructions: take 12.5 mL (500 mg) by mouth today (day 1), then 6.25 mL (250 mg) daily for 4 days (days 2-5) No Action omeprazole 40 mg capsule,delayed release(DR/EC) 40 mg PO DAILY etonogestrel 68 mg implant 68 mg SUBDERMAL ONCE Qty: 1 0RF ferrous sulfate 325 mg (65 mg iron) tablet 325 mg PO DAILY PNV 119-iron fum-folic acid 29 mg iron- 1 mg tablet 1 tab PO DAILY Referrals Follow up/Referrals: David Diaz MD [Primary Care Provider] - See instructions Activity Restrictions/Add. Instructions Additional Instructions/Restrictions: *Monitor Temp, Over the counter Motrin or Tylenol as directed/as needed Tylenol every 4 hours and Motrin every 6 hours (as long as your family doctor has told you that you can take it) for fever or pain. and straight to ER if unable to lower temp less than 101.0 after medication given *Warm salt water gargles may help to soothe the throat *Throat Lozenges? *Warm fluids like tea with honey may help to soothe the throat? *Sleep elevated *Humidifier/Vaporizer Follow up IMMEDIATELY for new or worsening symptoms or no Noticeable improvement over the next 48-72 hours. 911 for difficulty breathing or swallowing Clinical Impressions Clinical Impression: Sinusitis Instructions Patient Instructions: DI for Sinusitis, Sinusitis, Azithromycin Discharge ED Provider: Jen Mcnair [facility] [place] HPI General Stated complaint: congestion,cough Mode of Arrival: Ambulatory Source of Information: Patient Limitations: No Limitations Time Seen by Provider: 06/12/22 14:29 Description of Symptoms (Recalled from Triage Doc. by RN): pt comes in with c/o cough, runny nose, congestion, sinus headache. ongoing for 1 week HEENT Symptoms (Recalled from RN notes): Yes Resp Symptoms (Recalled from RN notes): Yes Skin Symptoms (Recalled from RN notes): No MS Symptoms (Recalled from RN notes): No Functional Status (Recalled from RN notes): n/a History of Present Illness Provider Complaint: Patient states that for the last week she has been having sinus pain and pressure, thick yellowish green mucous from her nose, cough and sinus headache State that she is 35wks OB so she came in to see if she could get something for her sinus infection Related Data Home Medications Medication Instructions Recorded Confirmed omeprazole 40 mg capsule,delayed 40 mg PO DAILY GERD 09/10/21 06/12/22 release ferrous sulfate 325 mg (65 mg 325 mg PO DAILY Supplement 06/12/22 06/12/22 iron) tablet vitamins no.119-iron 1 tab PO DAILY 06/12/22 06/12/22 fumarate 29 mg-folic acid 1 mg tablet Previous Rx's Medication Instructions Recorded azithromycin 200 mg/5 mL oral See Rx Instructions PO .COMPLEX 06/12/22 suspension #37.5 mL Allergies Allergy/AdvReac Type Severity Reaction Status Date / Time penicillin G [PENICILLIN G] Allergy Mild Verified 06/12/22 14:28 red dye [RED DYE] Allergy Unknown Verified 06/12/22 14:28 Worker's Comp Is this a Worker's Comp case?: No PFSH PFSH Surgical History History of 2 sections Hx of tonsillectomy Social History Smoking Status: Never smoker alcohol intake: never substance use type: denies use current occupational status: unemployed Travel in the last 8 weeks: None household members: spouse housing: house ROS Obtained: Yes All systems reviewed & no additional complaints except as documented and Yes Systems reviewed as appropriate & no additional complaints except as documented Constitutional Constitutional: Reports system reviewed and no
[2022-06-12 14:44] VITALS: BP 121/76; PULSE 89; RESP 18; TEMP 36.8
== END 2022-06-12 14:45 | disposition home or self-care (01) ==
PROVIDERS: Emergency Provider Nurse Practitioner; PCP Family Medicine
DX: J32.9 Chronic sinusitis, unspecified (principal)
CPT/HCPCS: 99212; G0463

== ENCOUNTER → 2022-06-19 16:57 | Outpatient (CLI) | payer OTHER, SELFPAY | PROVIDERS: Visit Provider Nurse Practitioner Obstetrics & Gynecology | DX: Z34.90 Encounter for supervision of normal pregnancy, unspecified, unspecified trimester (principal); Z3A.33 33 weeks gestation of pregnancy | CPT/HCPCS: 86403 ==

== ENCOUNTER 2022-07-06 04:49 | Inpatient (IN) | payer OTHER, SELFPAY ==
[2022-07-06] VITALS (13 sets, daily range): BP systolic 120–160; BP diastolic 56–79; PULSE 74–112; RESP 16–18; TEMP 36.4–36.9; O2SAT 98–100; BMI 32.9
[2022-07-06 05:43] LABS: Basophils # 0.1 K/mm3 (0-0.2); Basophils % 0.6 % (0.1-2.0); Eosinophils # 0.2 K/mm3 (0.0-0.4); Eosinophils % 1.9 % (0.1-12.0); Hematocrit 37.5 % (37.0-47.0); Hemoglobin 12.4 g/dL (12.2-16.2); Lymphocytes # 2.5 K/mm3 (0.7-4.5); Lymphocytes % 23.5 % (10-50); Mean Corpuscular Hemoglobin 28.1 pg (27.0-31.2); Mean Platelet Volume 8.5 fl (7.4-10.4); Monocytes # 0.3 K/mm3 (0.1-1.0); Monocytes % 2.9 % (1.7-9.3); Neutrophils # 7.5 K/mm3 (1.8-7.8); Platelet Count 195 K/mm3 (142-424); Red Blood Count 4.41 M/mm3 (4.20-5.40); Red Cell Distribution Width 13.9 % (11.5-17.5); White Blood Count 10.5 K/mm3 (4.8-10.8)
[2022-07-06 05:44] LABS: Microscopic, Urine URINE MICROSCOPIC (MICROSCOPIC)
[2022-07-06 05:48] LABS: Appearance,Urine CLEAR (Clear); Bilirubin,Urine Negative (Negative); Blood, Urine Negative (Negative); Color,Urine YELLOW (Yellow); Glucose,Urine (UA) Negative (Negative); Ketones,Urine 1+ (Negative); Leukocyte Esterase,Urine Negative (Negative); Nitrate,Urine Negative (Negative); Protein,Urine Negative (Negative); Urobilinogen,Urine 0.2 EU/dl (0.2)
[2022-07-06 05:50] LABS: Chloride 105 mmol/L (98-107); Potassium 3.9 mmoL/L (3.5-5.1); Sodium 137 mmol/L (136-145)
[2022-07-06 05:52] LABS: Alanine Aminotransferase 12 U/L (12-78); Aspartate Amino Transferase 26 U/L (14-36); Creatinine Clearance Estimated 242 mL/min (50-200); Estimated Glomerular Filt Rate 149 ml/min (>60); GFR (African American) 180 ML/MIN (>60)
[2022-07-06 05:53] LABS: Albumin Level 3.5 g/dl (3.5-5.0); Albumin/Globulin Ratio 1.1 (1.1-1.8); Alkaline Phosphatase 168 U/L (38-126); Anion Gap 13.9 mEq/L (5-15); Bilirubin,Total 0.5 mg/dl (0.2-1.3); Calcium 8.7 mg/dl (8.4-10.2); Carbon Dioxide 22 mmol/L (22.0-30.0); Globulin 3.2 g/dL (1.3-3.2); Glucose 88 mg/dl (74-100); Total Protein,Serum 6.7 g/dl (6.3-8.2)
[2022-07-06 05:54] LABS: Blood Urea Nitrogen < 2 mg/dl (7-17)
[2022-07-06 05:58] LABS: Amphetamine/Metha Screen,Urine Negative ng/ml (<1000)
[2022-07-06 05:59] LABS: Barbiturates Screen,Urine Negative ng/ml (<200)
[2022-07-06 06:00] LABS: Benzodiazepines Screen,Urine Negative ng/ml (<200); Cannabinoid Screen,Urine Negative ng/ml (<50)
[2022-07-06 06:01] LABS: Cocaine Screen,Urine Negative ng/ml (<300)
[2022-07-06 06:02] LABS: Methadone Screen,Urine Negative ng/ml (<300); Opiate Screen,Urine Negative ng/ml (<300)
[2022-07-06 06:03] LABS: Phencyclidine Screen,Urine Negative ng/ml (<25)
[2022-07-06 06:08] LABS: Coronavirus 19, PCR Not Detected (NotDetected); Influenza A, PCR Not Detected (NotDetected); Influenza B, PCR Not Detected (NotDetected)
--- NOTE | 2022-07-06 07:16 | EXP.ANES.CKL ---
[facility] Surgical History History of 2 sections Hx of tonsillectomy Social History Smoking Status: Never smoker alcohol intake: never substance use type: denies use current occupational status: unemployed Travel in the last 8 weeks: None household members: spouse housing: house [facility] Anesthesia Checklist Patient Identification Patient Identification: Arm Band and Verbal (Name & ) Structural Data Admitted From: Home Planned Operative Procedure/s: C/S Consent for Planned Operative Procedure(s) Verified: Yes NPO Status Verified Time NPO: 00:00 Chart Verification Results Verified: CBC and BMP Additional verifications Anesthesia Reactions: No Airway Assessment C-Spine Mobility Assessed: Yes TMJ Mobility Assessed: Yes Dentition: Edentulous Neurological Assessment Level of Consciousness: Awake Hx Seizures: No Numbness or tingling in extremities: No Anesthesia Plan Anesthesia Risk discussed: Yes Anesthesia Plan: Verified ASA Class: II Anesthesia Type: Spinal
--- NOTE | 2022-07-06 08:44 | EXP.OP.NOTE ---
Date of procedure: 07/06/22 Pre-op Diagnosis:: Term , previous sections, desire for sterilization Post-op Diagnosis:: Term , previous sections, desire for sterilization, uterine atony Procedure performed:: Repeat lower segment transverse section, bilateral salpingectomy, B-burr suture Surgeon:: Henry Choudhary MD Pre School Manager(s):: Dr. Hightower ROASTER HELPER:: Sb Neely Anesthesia: spinal Estimated blood loss (mL): 600 Clinical Note:: She is a 27-year-old 3 para 2 at 39 weeks gestational age. She has had 2 previous sections and as result of that was offered repeat lower segment transverse section at term. She also expressed desire for sterilization. The risks and benefits of surgery were discussed with the patient as well as the irreversibility of bilateral salpingectomy. Operative findings:: She had a very thin lower uterine segment. There was just a window of myometrium and scar tissue. She delivered a liveborn female child at 7:53 AM on the morning of July 06, 2022. The baby had Apgars of 9 at 1 minute and 9 at 5 minutes. Ovaries and tubes appeared normal. She did have a boggy uterus and as a result of that we elected to place a B-burr suture. Operative note:: She was taken to the operating room where spinal anesthesia was found be adequate. She was prepped and draped in normal sterile fashion in the supine position with a leftward tilt. A Celis catheter was in the bladder. A Pfannenstiel skin incision was made with knife then carried through to the underlying layer of fascia with cautery. The fascia was opened in the midline with cautery and extended laterally using Bagley scissors. Clemente clamps were applied to the superior aspect of the fascial incision which was tented up and the underlying rectus muscles dissected off using cautery. The Clemente clamps were then applied to the inferior aspect of the fascial incision which in a similar fashion was tented up and the underlying rectus muscles dissected off using cautery. The rectus muscles were then in the midline, the peritoneum identified, and entered sharply with Metzenbaum scissors. This incision was then extended superiorly and inferiorly with cautery. We had good visualization of the bladder inferiorly. The bladder peritoneum was then opened in the midline and extended laterally using Metzenbaum scissors. A bladder flap was created digitally. We then inserted an Jasbir retractor. Transverse incision was made through the uterine muscle to the amnion. This tissue was extremely thin. This incision was then extended superiorly and inferiorly using fingers traction. The amnion was entered sharply with knife. There was copious clear amniotic fluid. The 's head was then delivered atraumatically. This was followed by the anterior shoulder and the rest of the 's body atraumatically. The oropharynx and nasopharynx were bulb suctioned. The baby was vigorous so we allowed the cord to continue to pulsate for approximately 45 seconds. The cord is then doubly clamped and cut. The was then handed off to Dr. Feliciano who assigned Apgars of 9 at 1 minute and 9 at 5 minutes. We then obtained cord blood. Using gentle traction on the cord and countertraction on the fundus I was able to easily deliver the placenta intact. It had a normal three-vessel cord. The uterus was then cleared of clots and debris . The uterine incision was then closed using running 0 Vicryl suture in a locked fashion. A second layer of the same suture was used to imbricate the first layer. There was an area in the medial aspect the incision that was oozing and we placed a single [id number] 2-0 Vicryl suture here. I placed a large piece of Surgicel under the bladder peritoneum. The bladder peritoneum was then closed using running 2-0 Vicryl suture in a locked fashion. The gutters and cul-de-sac were then cleared of clots and debris . Once a
--- NOTE | 2022-07-06 08:52 | P.PNANES_ITS ---
[facility] Anesthesia Record Part I Anesthesia Record I Intake, IV Amount: 2,000 Estimated blood loss (mL): 600 Urine output (mL): 250 Blood Products used (#): none Blood Pressure: 160/77 SaO2: 100 Pulse Rate: 99 Respiratory Rate: 16 Temperature: 97.5 F Patient is:: Awake and Stable Stable to PACU at:: 08:45
--- NOTE | 2022-07-06 09:57 | PC.NURSE ---
0913-detailed report called to RobbiRN 0917-pt transported to OB via hospital bed w/rakan rails up per ANA Go and ANA Fleming. Pt stable upon discharge from PACU, vss
--- NOTE | 2022-07-06 10:07 | EXP.ANES.II ---
[facility] Anesthesia Record Part II Anesthesia Record Part II Discharge Time: 09:15 Destination: Obstetric PACU nurse assessment reviewed?: Yes Patient Condition:: Good Anesthesia Complications:: None Swallowing reflex intact?: Yes Cyanosis?: No Blood Pressure: 146/73 Pulse Rate: 82 Temperature: 97.6 F Mental Status: Alert & Oriented Pain level:: 0 Nausea and/or vomitting:: None Intake, IV Amount: 0
--- NOTE | 2022-07-06 10:27 | SUR.OPER ---
late entry 0753 viable baby girl born 08[birth year] timeout performed for tap block 0833 tap block started by tico montoya with assistance from Dr. Choudhary 0840 tap block finished
[2022-07-06 16:03] LABS: Microscopic,Cath URINE MICROSCOPIC (MICROSCOPIC)
[2022-07-06 17:14] LABS: Appearance,Urine/Cath CLEAR (Clear); Bilirubin,Cath Negative (Negative); Blood, Urine/Cath Negative (Negative); Color,Urine/Cath YELLOW (Yellow); Glucose,Urine/Cath (UA) Negative (Negative); Ketones,Urine/Cath TRACE (Negative); Leukocyte Esterase,Cath Negative (Negative); Nitrate,Cath Negative (Negative); Protein,Urine/Cath Negative (Negative); Specific Gravity, Urine/Cath 1.015 (1.005-1.030); Urobilinogen,Cath 0.2 EU/dl (0.2)
[2022-07-06 19:13] LABS: Bacteria,Urine/Cath TRACE /lpf; Mucus,Urine/Cath Trace /lpf; RBC,Urine/Cath Occasional # /hpf (0-3); WBC,Urine/Cath Occasional #/hpf (0-3)
[2022-07-07 00:18] VITALS: BP 130/66; PULSE 89; RESP 18; TEMP 36.7; O2SAT 98
[2022-07-07 03:37] VITALS: BP 130/60; PULSE 84; RESP 17; TEMP 36.8; O2SAT 100
[2022-07-07 06:53] LABS: Hematocrit 28.6 % (37.0-47.0); Hemoglobin 9.6 g/dL (12.2-16.2)
--- NOTE | 2022-07-07 08:28 | EXP.DC.SUM ---
General Admission date:: 07/06/22 Discharge date: 07/07/22 Exam Data for Last 24 hours Vital signs and Labs for Last 24 Hours: Temp Pulse Resp BP Pulse Ox 98.2 F 84 17 130/60 100 07/07/22 03:37 07/07/22 03:37 07/07/22 03:37 07/07/22 03:37 07/07/22 03:37 Laboratory Results - last 24 hr 07/06/22 05:20: Blood Type A Positive, Antibody Screen Negative 07/06/22 09:40: Urine Color Yellow, Urine Appearance Clear, Urine pH 7.0, Ur Specific [place] 1.015, Urine Protein Negative, Urine Glucose (UA) Negative, Urine Ketones Trace, Urine Blood Negative, Urine Nitrate Negative, Urine Bilirubin Negative, Urine Urobilinogen 0.2, Ur Leukocyte Esterase Negative, Urine RBC Occasional, Urine WBC Occasional, Urine Bacteria Trace 07/07/22 06:43: Hgb 9.6 L, Hct 28.6 L I & O for Last 24 hours: Intake & Output 07/04/22 07/05/22 07/06/22 07/07/22 11:59 11:59 11:59 11:59 Intake Total 2250 / 2250 Output Total 100 / 100 800 / 800 Balance 2150 / 2150 -800 / -800 Weight 198 lb Results Data Completed and Pending Labs on day of discharge: Labs from last 24 hours 07/07/22 07/06/22 07/06/22 06:43 09:40 05:20 Hgb 9.6 L Hct 28.6 L Urine Color Yellow Urine Appearance Clear Urine pH 7.0 Ur Specific [place] 1.015 Urine Protein Negative Urine Glucose (UA) Negative Urine Ketones Trace Urine Blood Negative Urine Nitrate Negative Urine Bilirubin Negative Urine Urobilinogen 0.2 Ur Leukocyte Esterase Negative Urine RBC Occasional Urine WBC Occasional Urine Bacteria Trace Blood Type A Positive Antibody Screen Negative Meds Home Medications and Allergies Home Medications Medication Instructions Recorded Confirmed Type omeprazole 40 mg capsule,delayed 40 mg PO DAILY GERD 09/10/21 07/06/22 History release ferrous sulfate 325 mg (65 mg 325 mg PO DAILY Supplement 06/12/22 07/06/22 History iron) tablet vitamins no.119-iron 1 tab PO DAILY Supplement 06/12/22 07/06/22 History fumarate 29 mg-folic acid 1 mg tablet New Prescriptions to Start Prescriptions: Allergies Allergy/AdvReac Type Severity Reaction Status Date / Time penicillin G [PENICILLIN G] Allergy Mild Verified 07/02/22 09:23 red dye [RED DYE] Allergy Unknown Verified 07/02/22 09:23 Discharge Plan Follow up Plan Prescriptions/Medication Reconciliation: No Action omeprazole 40 mg capsule,delayed release(DR/EC) 40 mg PO DAILY ferrous sulfate 325 mg (65 mg iron) tablet 325 mg PO DAILY PNV 119-iron fum-folic acid 29 mg iron- 1 mg tablet 1 tab PO DAILY Providers Primary Care Provider: David Diaz Admit Provider: Henry Choudhary Attending Provider: Henry Choudhary
--- NOTE | 2022-07-07 10:31 | EXP.HP ---
History of Present Illness *Admission Date: 07/06/22 *Reason for visit:: Term , previous section, desire for sterilization *History of present illness: She is a 27-year-old 3 para 2 at 39 weeks gestational age. She is admitted for repeat lower segment transverse section and bilateral salpingectomy. She has had 2 previous sections. [facility] Surgical History History of 2 sections History of cholecystectomy Hx of tonsillectomy Family History Family history of hypertension Father Family history of diabetes mellitus type II Social History Smoking Status: Never smoker alcohol intake: never substance use type: denies use current occupational status: unemployed Travel in the last 8 weeks: None household members: spouse housing: house Review of Systems Review of Systems Review of systems:: pertinent systems reviewed and negative unless documented below Meds Home Medications and Allergies Home Medications Medication Instructions Recorded Confirmed Type omeprazole 40 mg capsule,delayed 40 mg PO DAILY GERD 09/10/21 07/06/22 History release ferrous sulfate 325 mg (65 mg 325 mg PO DAILY Supplement 06/12/22 07/06/22 History iron) tablet vitamins no.119-iron 1 tab PO DAILY Supplement 06/12/22 07/06/22 History fumarate 29 mg-folic acid 1 mg tablet New Prescriptions to Start Prescriptions: Allergies Allergy/AdvReac Type Severity Reaction Status Date / Time penicillin G [PENICILLIN G] Allergy Mild Verified 07/02/22 09:23 red dye [RED DYE] Allergy Unknown Verified 07/02/22 09:23 Exam Data for Last 24 hours Vital signs and Labs for Last 24 Hours: Temp Pulse Resp BP Pulse Ox 98.2 F 84 17 130/60 100 07/07/22 03:37 07/07/22 03:37 07/07/22 03:37 07/07/22 03:37 07/07/22 03:37 Laboratory Results - last 24 hr 07/06/22 09:40: Urine Color Yellow, Urine Appearance Clear, Urine pH 7.0, Ur Specific [place] 1.015, Urine Protein Negative, Urine Glucose (UA) Negative, Urine Ketones Trace, Urine Blood Negative, Urine Nitrate Negative, Urine Bilirubin Negative, Urine Urobilinogen 0.2, Ur Leukocyte Esterase Negative, Urine RBC Occasional, Urine WBC Occasional, Urine Bacteria Trace 07/07/22 06:43: Hgb 9.6 L, Hct 28.6 L I & O for Last 24 hours: Intake & Output 07/04/22 07/05/22 07/06/22 07/07/22 11:59 11:59 11:59 11:59 Intake Total 2250 / 2250 Output Total 100 / 100 800 / 800 Balance 2150 / 2150 -800 / -800 Weight 198 lb Constitutional Constitutional: no acute distress *Routine HEENT Exam Head: Present normocephalic Eye: Present EOMI and PERRL ENT: Present mucous membranes moist *Routine Neck Exam Neck: Present supple; Absent lymphadenopathy *Routine Respiratory Exam Respiratory: Present CTA bilaterally *Routine Cardiovascular Exam Cardiovascular: Present RRR *Routine Abdominal Exam Abdominal: Present soft and normoactive bowel sounds; Absent tenderness *Routine Rectal Exam Rectal:: deferred *Routine Genitalia Exam Genitalia:: deferred *Routine Extremities Exam Extremities: Absent cyanosis, clubbing or edema *Routine Skin Exam Skin: Present warm; Absent rash *Routine Neurological Exam Neurological: Present alert and oriented X3 Assessment and Plan *Assessment and plan (1) Polyhydramnios affecting in third trimester: Status: Acute Category: Medical Code(s): O40.3XX0 - Polyhydramnios, third trimester, not applicable or unspecified (2) History of 2 sections: Status: Acute Category: Surgical Code(s): Z98.891 - History of uterine scar from previous surgery (3) delivery delivered: Status: Acute Category: Medical Code(s): O82 - Encounter for delivery
--- NOTE | 2022-07-07 10:34 | EXP.DC.SUM ---
General Admission date:: 07/06/22 Discharge date: 07/07/22 HPI HPI HPI: She is a 27-year-old 3 para 2 at 39 weeks gestational age. She was admitted for repeat lower segment transverse section at term. She also expressed desire for sterilization. The risks and benefits of surgery as well as the irreversibility of bilateral salpingectomy were discussed with the patient prior to surgery. Hospital Course Hospital Course Hospital Course: On July 06, 2022 she underwent a repeat lower segment transverse section and bilateral salpingectomy. She delivered a liveborn female child at 7:53 AM. The baby had Apgars of 9 at 1 minute and 9 at 5 minutes. She has done very well and has remained afebrile throughout hospitalization. At the time of her surgery she did have a boggy uterus and we elected perform a B-burr suture. She is eating and drinking and ambulating. She is bottlefeeding. She has a positive blood, she is rubella immune and was group B streptococcus negative. Her customer consultant Dr. Feliciano. She will be discharged home today to follow-up with me in approximately 2 weeks time. She was given the usual instructions with respect to limiting her activity, driving and sexual activity. She was given instructions with respect to wound care. She will continue with her vitamins and iron. She was given a prescription for Percocet 5/325 number 12 tablets. She will also take ibuprofen at home. Her condition on discharge is stable and improved. Exam Data for Last 24 hours Vital signs and Labs for Last 24 Hours: Temp Pulse Resp BP Pulse Ox 98.2 F 84 17 130/60 100 07/07/22 03:37 07/07/22 03:37 07/07/22 03:37 07/07/22 03:37 07/07/22 03:37 Laboratory Results - last 24 hr 07/06/22 09:40: Urine Color Yellow, Urine Appearance Clear, Urine pH 7.0, Ur Specific [place] 1.015, Urine Protein Negative, Urine Glucose (UA) Negative, Urine Ketones Trace, Urine Blood Negative, Urine Nitrate Negative, Urine Bilirubin Negative, Urine Urobilinogen 0.2, Ur Leukocyte Esterase Negative, Urine RBC Occasional, Urine WBC Occasional, Urine Bacteria Trace 07/07/22 06:43: Hgb 9.6 L, Hct 28.6 L I & O for Last 24 hours: Intake & Output 07/04/22 07/05/22 07/06/22 07/07/22 11:59 11:59 11:59 11:59 Intake Total 2250 / 2250 Output Total 100 / 100 800 / 800 Balance 2150 / 2150 -800 / -800 Weight 198 lb Constitutional Constitutional: no acute distress *Routine HEENT Exam Head: Present normocephalic *Routine Neck Exam Neck: Absent tenderness *Routine Respiratory Exam Respiratory: Present normal respiratory effort Results Data Completed and Pending Labs on day of discharge: Labs from last 24 hours 07/07/22 07/06/22 06:43 09:40 Hgb 9.6 L Hct 28.6 L Urine Color Yellow Urine Appearance Clear Urine pH 7.0 Ur Specific [place] 1.015 Urine Protein Negative Urine Glucose (UA) Negative Urine Ketones Trace Urine Blood Negative Urine Nitrate Negative Urine Bilirubin Negative Urine Urobilinogen 0.2 Ur Leukocyte Esterase Negative Urine RBC Occasional Urine WBC Occasional Urine Bacteria Trace DS: Diagnosis Discharge Diagnosis (1) Polyhydramnios affecting in third trimester: Status: Acute (2) History of 2 sections: Status: Acute (3) delivery delivered: Status: Acute (4) Admission for sterilization: Status: Acute (5) Uterine atony, , without hemorrhage: Status: Acute Meds Home Medications and Allergies Home Medications Medication Instructions Recorded Confirmed Type omeprazole 40 mg capsule,delayed 40 mg PO DAILY GERD 09/10/21 07/06/22 History release ferrous sulfate 325 mg (65 mg 325 mg PO DAILY Supplement 06/12/22 07/06/22 History iron) tablet vitamins no.119-iron 1 tab PO DAILY Supplement 06/12/22 07/06/22 History fumarate 29 mg-foli
== END 2022-07-07 16:35 | disposition home or self-care (01) | DRG 785 ==
PROVIDERS: Admitting Provider Nurse Practitioner Obstetrics & Gynecology; PCP Family Medicine; Visit Provider Nurse Practitioner Obstetrics & Gynecology
PROC: 0UL70ZZ Occlusion of Bilateral Fallopian Tubes, Open Approach (ICD-10-PCS; CPT 59514; principal; 2022-07-06 07:30)
DX: O34.211 Maternal care for low transverse scar from previous cesarean delivery (principal); Z3A.39 39 weeks gestation of pregnancy; Z37.0 Single live birth; O62.2 Other uterine inertia; Z30.2 Encounter for sterilization; N85.8 Other specified noninflammatory disorders of uterus
CPT/HCPCS: 59514; 58700; 36415; 59025; 80053; 80305; 81001; 85014; 85018; 85025; 86850; 94761; C9290; C9803; G0283; J2405; U0003; U0005

== ENCOUNTER 2022-08-11 16:47 | Emergency (ER) | payer OTHER, SELFPAY ==
--- NOTE | 2022-08-11 17:01 | EXP.UTC ---
Discharge Plan Disposition Patient Disposition: Home, Self-Care Condition: Good Prescriptions Prescriptions: New azithromycin [Zithromax] 250 mg tablet 250 mg PO UD DOSE PK Qty: 6 0RF Rx Instructions: Take two (2) tablets today, then one (1) tablet days #2 thru #5 benzonatate [benzonatate] 100 mg capsule 100 mg PO TIDP PRN (Reason: Cough) Qty: 30 0RF methylprednisolone 4 mg Tablets,Dose Pack 4 mg PO DIRECTED Qty: 21 0RF oseltamivir [Tamiflu] 6 mg/mL suspension for reconstitution 75 mg PO BID 5 Days Qty: 125 0RF No Action omeprazole 40 mg capsule,delayed release(DR/EC) 40 mg PO DAILY oxycodone-acetaminophen [Percocet] 5-325 mg Tablet 1 tab PO Q6H PRN (Reason: severe pain.) Qty: 12 0RF ibuprofen [ibuprofen] 400 mg tablet 400 mg PO Q4HP PRN (Reason: Moderate Pain) Qty: 40 0RF ferrous sulfate 325 mg (65 mg iron) tablet 325 mg PO DAILY Qty: 30 1RF PNV 119-iron fum-folic acid 29 mg iron- 1 mg tablet 1 tab PO DAILY Referrals Follow up/Referrals: David Diaz MD [Primary Care Provider] - See instructions Activity Restrictions/Add. Instructions Additional Instructions/Restrictions: Drink plenty of fluids. Take tylenol or ibuprofen for pain or fever. Take the medications as directed. Follow up with your regular doctor. GO TO THE ER FOR ANY WORSENING SYMPTOMS Clinical Impressions Clinical Impression: Influenza A, Bronchitis Stand Alone Forms Stand Alone Forms: Work/School Release Instructions Patient Instructions: DI for Acute Bronchitis, DI for Influenza -- Adult, Oseltamivir Discharge ED Provider: Archie Erwin [facility] General Stated complaint: cough, runny nose Time Seen by Provider: 08/11/22 17:00 History of Present Illness Provider Complaint: She states that for the past 3 days she has had fever, chills, productive cough and malaise. Related Data Home Medications Medication Instructions Recorded Confirmed omeprazole 40 mg capsule,delayed 40 mg PO DAILY GERD 09/10/21 07/06/22 release vitamins no.119-iron 1 tab PO DAILY Supplement 06/12/22 07/06/22 fumarate 29 mg-folic acid 1 mg tablet Previous Rx's Medication Instructions Recorded ferrous sulfate 325 mg (65 mg 325 mg PO DAILY Supplement #30 tabs 07/07/22 iron) tablet ibuprofen 400 mg tablet 400 mg PO Q4HP PRN Moderate Pain 07/07/22 #40 tabs oxycodone-acetaminophen 5 mg-325 1 tab PO Q6H PRN severe pain. #12 07/07/22 mg tablet (Percocet) tabs azithromycin 250 mg tablet 250 mg PO UD DOSE PK #6 tabs 08/11/22 (Zithromax) benzonatate 100 mg capsule 100 mg PO TIDP PRN Cough #30 caps 08/11/22 methylprednisolone 4 mg tablets in 4 mg PO DIRECTED #21 tabs 08/11/22 a dose pack oseltamivir 6 mg/mL oral 75 mg (12.5 mL) PO BID 5 days #125 08/11/22 suspension (Tamiflu) mL Allergies Allergy/AdvReac Type Severity Reaction Status Date / Time penicillin G [PENICILLIN G] Allergy Mild Verified 08/11/22 17:38 red dye [RED DYE] Allergy Unknown Verified 08/11/22 17:38 PFS PFS Disclaimer: The information contained in this section may have been updated after the patient was seen, as this information can be updated by other users. Medical History Acid reflux Asthma LGA (large for gestational age) fetus affecting management of mother Nausea Polyhydramnios affecting in third trimester tubal ligation planned Sinusitis UTI in , antepartum Surgical History History of 2 sections History of cholecystectomy Hx of tonsillectomy Family History Father Family history of hypertension Other Family history of diabetes mellitus type II Social History Smoking Status: Never smoker alcoho
[2022-08-11 17:35] VITALS: BP 132/57; PULSE 76; RESP 16; TEMP 36.9; O2SAT 98; BMI 31.4
[2022-08-11 17:43] LABS: UTC Strep Screen (Rapid) Negative (Negative)
[2022-08-11 17:44] LABS: UTC Influenza A Antigen Positive (Negative); UTC Influenza B Antigen Negative (Negative)
[2022-08-11 18:04] VITALS: BP 132/57; PULSE 76; RESP 16; TEMP 36.9
== END 2022-08-11 18:10 | disposition home or self-care (01) ==
PROVIDERS: Emergency Provider Nurse Practitioner Family; PCP Family Medicine
DX: J10.1 Influenza due to other identified influenza virus with other respiratory manifestations (principal)
CPT/HCPCS: 87804; 87880; 99212; G0463

== ENCOUNTER 2025-07-09 19:06 | Emergency (ER) | payer OTHER, SELFPAY ==
[2025-07-09 19:19] VITALS: BP 181/101; PULSE 84; RESP 18; TEMP 36.8; O2SAT 100; BMI 31.8
--- NOTE | 2025-07-09 19:19 | ED_ITS ---
<Statement entered by Сергей Herr MD - 07/10/25 01:27> I was consulted by the JAMI, and we discussed the complexity of the problems being addressed. I approve the treatment and management plan for this patient's care in the emergency department, thus performing a substantive portion of the medical decision making. Сергей Herr MD Discharge Plan Disposition Chief Complaint: Ear Prescriptions Prescriptions: New azithromycin 250 mg tablet 250 mg PO DAILY Qty: 6 0RF Rx Instructions: 250 mg orally; 2 tabs day 1 then 1 tab days 2-5 No Action albuterol sulfate 90 mcg/actuation HFA aerosol inhaler 2 puff inhalation Q6H PRN omeprazole 40 mg capsule,delayed release(DR/EC) 40 mg PO DAILY terconazole 0.4 % cream 1 appful vaginal HS 7 Days Qty: 45 6RF Referrals Follow up/Referrals: David Diaz MD [Primary Care Provider, Medical] - See instructions Activity Restrictions/Add. Instructions Additional Instructions/Restrictions: Increase fluids and rest. Take meds as directed. If any worsening symptoms occur please return to ED or see PCP Clinical Impressions Clinical Impression: Otitis media Instructions Patient Instructions: Middle Ear Infections (Alternative Therapy) Print Language Print Language: Tamazight Discharge ED Provider: Сергей Herr General Adult HPI General Chief complaint: Ear Stated complaint: Severe Dizziness Time Seen by Provider: 07/09/25 19:10 History of Present Illness HPI narrative: 30-year-old female presents to the ED today for complaint of popping in her left ear for 2 weeks, headache nausea and body aches. She has had no fevers. She has had some fluid in her left ear in the past. Patient does have elevated blood pressure today but it did improve to 159/112. Related Data Home Medications ?Medication ?Instructions ?Recorded ?Confirmed omeprazole 40 mg capsule,delayed 40 mg PO DAILY GERD 0 09/10/21 08/27/22 release albuterol sulfate 90 mcg/actuation 2 puff inhalation Q 6H PRN 08/27/22 08/27/22 aerosol inhaler Previous Rx's ?Medication ?Instructions ?Recorded terconazole 0.4 % vaginal cream 1 appful vaginal HS 7 days #45 03/31/23 grams azithromycin 250 mg tablet 250 mg PO DAILY #6 tabs Allergies Allergy/AdvReac Type Severity Reaction Status Date / Time penicillin G (PENICILLIN G) Allergy Mild Verified 08/27/22 15:24 red dye (RED DYE) Allergy Unknown Verified 08/27/22 15:24 [facility] Disclaimer: The information contained in this section may have been updated after the patient was seen, as this information can be updated by other users. Medical History (Updated 07/09/25 @ 19:25 by Denise Jeronimo (ED), [employer]) Polyhydramnios affecting in third trimester LGA (large for gestational age) fetus affecting management of mother Sinusitis UTI in , antepartum tubal ligation planned Acid reflux Asthma Nausea Surgical History (Updated 08/27/22 @ 15:22 by Leslye Monsalve [facility]) H/O tubal ligation History of cholecystectomy Hx of tonsillectomy History of 2 sections Family History Father Family history of hypertension Other Family history of diabetes mellitus type II Social History Smoking Status: Never smoker alcohol intake: never substance use type: denies use current occupational status: unemployed Travel in the last 8 weeks?: None household members: spouse housing: house Have you lived/traveled outside [place] in past 30 days?: No Contact w/someone who lives/traveled outside US past 30 days?: No Exposure to someone with infectious disease in past 14 days?: No Do you have a fever (greater than 100.4 F or 38 C)?: No Have you tested positive for COVID-19?: No Exposed to someone with COVID-19 in past 14 days?: No Do you have a sore throat?: No Do you have a cough?: No Do you have any weakness?: No Do you have any diarrhea?: No Are you experiencing any unusual bleeding?: No Do you have any muscle aches/pain?: No Do you have any abdominal pain?: No Are you experiencing loss of taste or smell?: No Other Medical History Have you received the Flu Vaccine for this season: No Have you received the Pneumonia Vaccine: No ROS Obtained: Yes Systems reviewed as appropriate & no additional complaints except as documented Constitutional Constitutional: Reports as per HPI Physical Exam General General appearance: alert and in no apparent distress Head Head exam: normocephalic Eye Eye exam: Present PERRL and EOMI ENT ENT exam: Present normal oropharynx and mucous membranes moist Neck Neck exam: Present full ROM and trachea midline Chest Chest inspection: Present normal inspection Respiratory Respiratory exam: Present normal lung sounds bilaterally Cardiovascular Cardiovascular exam: Present regular rate, normal rhythm, normal heart sounds, +S1 and +S2 Abdominal Exam Abdominal exam: Present soft and normal bowel sounds Extremities Exam Extremities exam: Present full ROM and normal capillary refill Neurological Exam Neurological exam: Present alert and oriented X3 Skin Skin exam: Present warm and dry Medical Decision Making Medical Records Screening: Per USPSTF and CDC recommendations, given the prevalence of disease in our region, it is our hospital?s policy to screen for HIV and viral Hepatitis for all patients aged 18 and over and those with ongoing risk factors. [place] Inquiry Pt receiving controlled substance: No [place] was queried for this patient: No Vital Signs: 07/09/25 19:19 07/09/25 19:25 Temperature 98.2 F Temperature Source Oral Pulse Rate 84 Pulse Rate [Right] 84 Respiratory Rate 18 18 Blood Pressure 159/111 H Blood Pressure [Right Arm] 181/101 H Blood Pressure Mean [Right Arm] 127 02 Sat by Pulse Oximetry 100 97 Oxygen Delivery Method Room Air Room Air Orders (Tests/Meds): ED MEDICATIONS Discontinued Medications Generic Name Dose Route Start Last Admin Trade Name Alek PRN Reason Stop Dose Admin Acetaminophen 1,000 mg 07/09/25 19:17 07/09/25 19:29 Acetaminophen 500mg Tab PO 07/09/25 19:18 1,000 mg ONCE ONE Administration Ibuprofen 800 mg 07/09/25 19:18 07/09/25 19:29 Ibuprofen 800 Mg Tablet PO 07/09/25 19:19 800 mg ONCE ONE Administration Ondansetron HCl 4 mg 07/09/25 19:17 07/09/25 19:30 Ondansetron 4mg Odt SL 07/09/25 19:18 4 mg ONCE ONE Administration ORDERS Category Date Time Status HIV Combo Stat Lab 07/09/25 19:24 Ordered Hepatitis C Ab Qual. W/ RFX Stat Lab 07/09/25 19:24 Ordered Rapid PCR Covid and Flu A/B Stat Lab 07/09/25 19:28 Received Medical Decision Narrative: patient is a 30-year-old female presenting to the emergency department for evaluation of left ear pain, headache, nausea. Patient is hemodynamically stable and nontoxic-appearing upon arrival, afebrile. Differential diagnosis includes viral illness, ear infection. Patient will be given Tylenol, ibuprofen and Zofran for symptoms. We will swab her for the flu and COVID. These are likely viral symptoms for the most part. Her ear is infected. We will treat that. We will call patient with results of swabs. Patient safe for discharge home. Critical Care Critical Care Time Critical Care Time: No
[2025-07-09 19:25] VITALS: BP 159/111; PULSE 84; RESP 18; O2SAT 97
[2025-07-09] MEDS: ACETAMINOPHEN 500MG TAB 1000 MG PO (19:29)
[2025-07-09] MEDS: IBUPROFEN 800 MG TABLET PO (19:29)
[2025-07-09] MEDS: ONDANSETRON 4MG ODT 4 MG SL (19:30)
[2025-07-09 19:33] LABS: Coronavirus 19, PCR Not Detected (NotDetected); Influenza A, PCR Not Detected (NotDetected); Influenza B, PCR Not Detected (NotDetected)
[2025-07-09 20:21] VITALS: BP 156/89; PULSE 94; RESP 18; TEMP 37; O2SAT 100
[2025-07-09] MEDS: AZITHROMYCIN 250MG TABLET 500 MG PO (20:25)
== END 2025-07-09 20:30 | disposition home or self-care (01) ==
PROVIDERS: Nurse Practitioner; Emergency Provider Student in an Organized Health Care Education/Training Program; PCP Family Medicine
DX: H66.92 Otitis media, unspecified, left ear (principal); R42 Dizziness and giddiness
CPT/HCPCS: 87636; 99283; 99284; Q0162